=== PATIENT | female | born 1950 | race Caucasian/White ===

== ENCOUNTER → 2021-02-27 | Outpatient (CLI) | payer OTHER, MEDICARE | LOC: HYPER 07:40 | PROVIDERS: ATTEND Emergency Medicine | DX: E11.622 Type 2 diabetes mellitus with other skin ulcer (principal); I87.312 Chronic venous hypertension (idiopathic) with ulcer of left lower extremity; L97.822 Non-pressure chronic ulcer of other part of left lower leg with fat layer exposed; S80.12XD Contusion of left lower leg, subsequent encounter; S80.812D Abrasion, left lower leg, subsequent encounter; S80.822D Blister (nonthermal), left lower leg, subsequent encounter; I89.0 Lymphedema, not elsewhere classified; R60.0 Localized edema; E11.40 Type 2 diabetes mellitus with diabetic neuropathy, unspecified; E66.01 Morbid (severe) obesity due to excess calories; E03.9 Hypothyroidism, unspecified; E78.5 Hyperlipidemia, unspecified; G47.30 Sleep apnea, unspecified; G89.29 Other chronic pain; I48.91 Unspecified atrial fibrillation; I25.10 Atherosclerotic heart disease of native coronary artery without angina pectoris; K21.9 Gastro-esophageal reflux disease without esophagitis; Z79.01 Long term (current) use of anticoagulants; Z79.84 Long term (current) use of oral hypoglycemic drugs; Z85.3 Personal history of malignant neoplasm of breast; X58.XXXD Exposure to other specified factors, subsequent encounter ==

== ENCOUNTER → 2021-03-13 | Outpatient (CLI) | payer OTHER, MEDICARE | LOC: HYPER 07:47 | PROVIDERS: ATTEND Emergency Medicine | DX: S81.802D Unspecified open wound, left lower leg, subsequent encounter (principal); S80.922D Unspecified superficial injury of left lower leg, subsequent encounter; S80.812D Abrasion, left lower leg, subsequent encounter; E11.622 Type 2 diabetes mellitus with other skin ulcer; I87.312 Chronic venous hypertension (idiopathic) with ulcer of left lower extremity; L97.822 Non-pressure chronic ulcer of other part of left lower leg with fat layer exposed; E11.40 Type 2 diabetes mellitus with diabetic neuropathy, unspecified; R60.0 Localized edema; I89.0 Lymphedema, not elsewhere classified; G89.29 Other chronic pain; M25.569 Pain in unspecified knee; E03.9 Hypothyroidism, unspecified; I48.91 Unspecified atrial fibrillation; I25.10 Atherosclerotic heart disease of native coronary artery without angina pectoris; E78.5 Hyperlipidemia, unspecified; K21.9 Gastro-esophageal reflux disease without esophagitis; M47.9 Spondylosis, unspecified; G47.30 Sleep apnea, unspecified; E66.01 Morbid (severe) obesity due to excess calories; Z68.39 Body mass index [BMI] 39.0-39.9, adult; Z85.3 Personal history of malignant neoplasm of breast; Z87.891 Personal history of nicotine dependence; Z79.01 Long term (current) use of anticoagulants; Z79.84 Long term (current) use of oral hypoglycemic drugs; Z79.82 Long term (current) use of aspirin; Z79.899 Other long term (current) drug therapy; X58.XXXD Exposure to other specified factors, subsequent encounter ==

== ENCOUNTER → 2021-03-20 | Outpatient (CLI) | payer OTHER, MEDICARE | LOC: HYPER 07:42 | PROVIDERS: ATTEND Emergency Medicine | DX: S81.802D Unspecified open wound, left lower leg, subsequent encounter (principal); S80.922D Unspecified superficial injury of left lower leg, subsequent encounter; S80.812D Abrasion, left lower leg, subsequent encounter; S80.12XD Contusion of left lower leg, subsequent encounter; E11.622 Type 2 diabetes mellitus with other skin ulcer; I87.312 Chronic venous hypertension (idiopathic) with ulcer of left lower extremity; L97.822 Non-pressure chronic ulcer of other part of left lower leg with fat layer exposed; E11.40 Type 2 diabetes mellitus with diabetic neuropathy, unspecified; R60.0 Localized edema; I89.0 Lymphedema, not elsewhere classified; G89.29 Other chronic pain; M25.569 Pain in unspecified knee; E03.9 Hypothyroidism, unspecified; I48.91 Unspecified atrial fibrillation; I25.10 Atherosclerotic heart disease of native coronary artery without angina pectoris; E78.5 Hyperlipidemia, unspecified; K21.9 Gastro-esophageal reflux disease without esophagitis; M47.9 Spondylosis, unspecified; G47.30 Sleep apnea, unspecified; E66.01 Morbid (severe) obesity due to excess calories; Z68.39 Body mass index [BMI] 39.0-39.9, adult; Z85.3 Personal history of malignant neoplasm of breast; Z87.891 Personal history of nicotine dependence; Z79.01 Long term (current) use of anticoagulants; Z79.84 Long term (current) use of oral hypoglycemic drugs; Z79.82 Long term (current) use of aspirin; X58.XXXD Exposure to other specified factors, subsequent encounter ==

== ENCOUNTER → 2021-03-27 | Outpatient (CLI) | payer OTHER, MEDICARE | LOC: HYPER 07:52 | PROVIDERS: ATTEND Emergency Medicine | DX: S81.802D Unspecified open wound, left lower leg, subsequent encounter (principal); S80.922D Unspecified superficial injury of left lower leg, subsequent encounter; S80.812D Abrasion, left lower leg, subsequent encounter; S80.12XD Contusion of left lower leg, subsequent encounter; E11.622 Type 2 diabetes mellitus with other skin ulcer; I87.312 Chronic venous hypertension (idiopathic) with ulcer of left lower extremity; L97.822 Non-pressure chronic ulcer of other part of left lower leg with fat layer exposed; E11.40 Type 2 diabetes mellitus with diabetic neuropathy, unspecified; R60.0 Localized edema; I89.0 Lymphedema, not elsewhere classified; G89.29 Other chronic pain; M25.569 Pain in unspecified knee; E03.9 Hypothyroidism, unspecified; I48.91 Unspecified atrial fibrillation; I25.10 Atherosclerotic heart disease of native coronary artery without angina pectoris; E78.5 Hyperlipidemia, unspecified; K21.9 Gastro-esophageal reflux disease without esophagitis; M47.9 Spondylosis, unspecified; G47.30 Sleep apnea, unspecified; E66.01 Morbid (severe) obesity due to excess calories; Z68.39 Body mass index [BMI] 39.0-39.9, adult; Z85.3 Personal history of malignant neoplasm of breast; Z87.891 Personal history of nicotine dependence; X58.XXXD Exposure to other specified factors, subsequent encounter ==

== ENCOUNTER → 2021-04-05 | Outpatient (CLI) | payer OTHER, MEDICARE | LOC: HYPER 07:44 | PROVIDERS: ATTEND Emergency Medicine | DX: E11.622 Type 2 diabetes mellitus with other skin ulcer (principal); I87.312 Chronic venous hypertension (idiopathic) with ulcer of left lower extremity; L97.822 Non-pressure chronic ulcer of other part of left lower leg with fat layer exposed; S80.822D Blister (nonthermal), left lower leg, subsequent encounter; E11.40 Type 2 diabetes mellitus with diabetic neuropathy, unspecified; S80.812D Abrasion, left lower leg, subsequent encounter; S80.12XD Contusion of left lower leg, subsequent encounter; R60.0 Localized edema; I89.0 Lymphedema, not elsewhere classified; G89.29 Other chronic pain; M25.569 Pain in unspecified knee; E03.9 Hypothyroidism, unspecified; I48.91 Unspecified atrial fibrillation; I25.10 Atherosclerotic heart disease of native coronary artery without angina pectoris; I10 Essential (primary) hypertension; E66.01 Morbid (severe) obesity due to excess calories; G47.30 Sleep apnea, unspecified; E78.5 Hyperlipidemia, unspecified; K21.9 Gastro-esophageal reflux disease without esophagitis; M47.9 Spondylosis, unspecified; Z79.01 Long term (current) use of anticoagulants; Z79.84 Long term (current) use of oral hypoglycemic drugs; Z85.3 Personal history of malignant neoplasm of breast; Z87.891 Personal history of nicotine dependence; Z79.82 Long term (current) use of aspirin; Z79.899 Other long term (current) drug therapy; X58.XXXD Exposure to other specified factors, subsequent encounter ==

== ENCOUNTER → 2021-04-11 | Outpatient (CLI) | payer OTHER, MEDICARE | LOC: HYPER 08:09 | PROVIDERS: ATTEND Emergency Medicine | DX: S81.802D Unspecified open wound, left lower leg, subsequent encounter (principal); E11.622 Type 2 diabetes mellitus with other skin ulcer; I87.312 Chronic venous hypertension (idiopathic) with ulcer of left lower extremity; L97.822 Non-pressure chronic ulcer of other part of left lower leg with fat layer exposed; S80.12XD Contusion of left lower leg, subsequent encounter; S80.812D Abrasion, left lower leg, subsequent encounter; E11.40 Type 2 diabetes mellitus with diabetic neuropathy, unspecified; R60.0 Localized edema; G89.29 Other chronic pain; M25.569 Pain in unspecified knee; E03.9 Hypothyroidism, unspecified; I48.91 Unspecified atrial fibrillation; I25.10 Atherosclerotic heart disease of native coronary artery without angina pectoris; I10 Essential (primary) hypertension; E78.5 Hyperlipidemia, unspecified; K21.9 Gastro-esophageal reflux disease without esophagitis; M47.9 Spondylosis, unspecified; G47.30 Sleep apnea, unspecified; I89.0 Lymphedema, not elsewhere classified; E66.01 Morbid (severe) obesity due to excess calories; Z79.01 Long term (current) use of anticoagulants; Z79.84 Long term (current) use of oral hypoglycemic drugs; Z68.39 Body mass index [BMI] 39.0-39.9, adult; Z85.3 Personal history of malignant neoplasm of breast; Z87.891 Personal history of nicotine dependence; Z79.899 Other long term (current) drug therapy; X58.XXXD Exposure to other specified factors, subsequent encounter ==

== ENCOUNTER → 2021-04-17 | Outpatient (CLI) | payer OTHER, MEDICARE | LOC: HYPER 07:47 | PROVIDERS: ATTEND Emergency Medicine | DX: S81.802D Unspecified open wound, left lower leg, subsequent encounter (principal); E11.622 Type 2 diabetes mellitus with other skin ulcer; I87.312 Chronic venous hypertension (idiopathic) with ulcer of left lower extremity; L97.822 Non-pressure chronic ulcer of other part of left lower leg with fat layer exposed; S80.12XD Contusion of left lower leg, subsequent encounter; S80.812D Abrasion, left lower leg, subsequent encounter; I89.0 Lymphedema, not elsewhere classified; R60.0 Localized edema; E11.40 Type 2 diabetes mellitus with diabetic neuropathy, unspecified; E66.01 Morbid (severe) obesity due to excess calories; E03.9 Hypothyroidism, unspecified; E78.5 Hyperlipidemia, unspecified; G47.30 Sleep apnea, unspecified; G89.29 Other chronic pain; I48.91 Unspecified atrial fibrillation; I25.10 Atherosclerotic heart disease of native coronary artery without angina pectoris; I10 Essential (primary) hypertension; K21.9 Gastro-esophageal reflux disease without esophagitis; M47.9 Spondylosis, unspecified; M25.569 Pain in unspecified knee; Z79.01 Long term (current) use of anticoagulants; Z79.84 Long term (current) use of oral hypoglycemic drugs; Z68.39 Body mass index [BMI] 39.0-39.9, adult; Z85.3 Personal history of malignant neoplasm of breast; Z87.891 Personal history of nicotine dependence; X58.XXXD Exposure to other specified factors, subsequent encounter ==

== ENCOUNTER → 2021-05-08 | Outpatient (CLI) | payer OTHER, MEDICARE | LOC: HYPER 07:33 | PROVIDERS: ATTEND Emergency Medicine | DX: E11.622 Type 2 diabetes mellitus with other skin ulcer (principal); I87.312 Chronic venous hypertension (idiopathic) with ulcer of left lower extremity; L97.822 Non-pressure chronic ulcer of other part of left lower leg with fat layer exposed; S81.802D Unspecified open wound, left lower leg, subsequent encounter; S80.12XD Contusion of left lower leg, subsequent encounter; E11.40 Type 2 diabetes mellitus with diabetic neuropathy, unspecified; R60.0 Localized edema; I89.0 Lymphedema, not elsewhere classified; G89.29 Other chronic pain; M25.569 Pain in unspecified knee; E03.9 Hypothyroidism, unspecified; I48.91 Unspecified atrial fibrillation; I25.10 Atherosclerotic heart disease of native coronary artery without angina pectoris; E78.5 Hyperlipidemia, unspecified; K21.9 Gastro-esophageal reflux disease without esophagitis; M47.9 Spondylosis, unspecified; G47.30 Sleep apnea, unspecified; E66.01 Morbid (severe) obesity due to excess calories; Z68.39 Body mass index [BMI] 39.0-39.9, adult; Z87.891 Personal history of nicotine dependence; Z79.899 Other long term (current) drug therapy; Z79.01 Long term (current) use of anticoagulants; Z85.3 Personal history of malignant neoplasm of breast; Z79.84 Long term (current) use of oral hypoglycemic drugs; X58.XXXD Exposure to other specified factors, subsequent encounter ==

== ENCOUNTER → 2021-05-22 | Outpatient (CLI) | payer OTHER, MEDICARE | LOC: HYPER 07:47 | PROVIDERS: ATTEND Emergency Medicine | DX: E11.622 Type 2 diabetes mellitus with other skin ulcer (principal); I87.312 Chronic venous hypertension (idiopathic) with ulcer of left lower extremity; L97.822 Non-pressure chronic ulcer of other part of left lower leg with fat layer exposed; S81.802D Unspecified open wound, left lower leg, subsequent encounter; S80.12XD Contusion of left lower leg, subsequent encounter; L84 Corns and callosities; E11.40 Type 2 diabetes mellitus with diabetic neuropathy, unspecified; R60.0 Localized edema; I89.0 Lymphedema, not elsewhere classified; G89.29 Other chronic pain; M25.569 Pain in unspecified knee; E03.9 Hypothyroidism, unspecified; I48.91 Unspecified atrial fibrillation; I25.10 Atherosclerotic heart disease of native coronary artery without angina pectoris; E78.5 Hyperlipidemia, unspecified; K21.9 Gastro-esophageal reflux disease without esophagitis; M47.9 Spondylosis, unspecified; G47.30 Sleep apnea, unspecified; E66.01 Morbid (severe) obesity due to excess calories; Z68.39 Body mass index [BMI] 39.0-39.9, adult; Z87.891 Personal history of nicotine dependence; Z79.01 Long term (current) use of anticoagulants; Z85.3 Personal history of malignant neoplasm of breast; Z79.84 Long term (current) use of oral hypoglycemic drugs; X58.XXXD Exposure to other specified factors, subsequent encounter ==